=== PATIENT | female | born 1935 | race Caucasian/White ===

== ENCOUNTER 2016-12-24 05:10 | Emergency (ER) | payer OTHER, MEDICARE ==
--- NOTE | 2016-12-24 05:25 | EDPHY ---
H & P Time Seen by Provider: 12/24/16 05:20 HPI/ROS: Chief Complaint: Neck pain, headache, chest pressure HPI: 81-year-old woman was sitting in chair rest at 10 o'clock yesterday evening when she had a set of pain in the left lateral posterior part of her neck. She then developed as a headache. This lasted for several minutes then she does developed some chest pressure which radiated to her back into her scapula on the left side of her body was tingling. Chest pressure has improved. She is still having pain in the left side of her neck, 02/17. It is dull. No nausea or vomiting, no dizziness. No shortness of breath. Does not have a history of the same. Does have some history of anginal symptoms in the past for which she takes metoprolol. She has had a clean catheterization in the past year to here. No recent illness. No fevers or chills. ROS: 10 point Review of Systems is negative except as noted in the HPI. PMH: Exertional chest pain Medications: Gabapentin 100 mg twice a day Crestor 20 mg daily Aspirin 81 mg daily Calcium plus D 600 mg daily Vitamin D3 2000 International Units daily Vitamin-C 1000 mg daily Metoprolol 12.5 mg twice a day Allergies: Sulfa Social History: No smoking, occasional alcohol, no recreational drug use Family History: Father at 99 years of age, mother at 59 of cancer Physical Exam: Gen: Awake, Alert, No Distress HEENT: Nose: no rhinorrhea Eyes: PERRLA, EOMI Mouth: Moist mucosa Neck: Supple, no JVD, she has tenderness on posterior left lateral paraspinal musculature any assertion of the trapezius muscle reproducing presenting complaints. Chest: nontender, lungs clear to auscultation Heart: S1, S2 normal, no murmur Abd: Soft, non-tender, no guarding Back: no CVA tenderness, no midline tenderness Ext: no edema, non-tender Skin: no rash Neuro: CN II-XII intact, Sensation grossly intact, Strength 5/5 in bilateral upper and lower extremities Constitutional: Initial Vital Signs Temperature (C) 36.6 C 12/24/16 05:23 Heart Rate 60 12/24/16 05:23 Respiratory Rate 20 12/24/16 05:23 Blood Pressure 179/89 H 12/24/16 05:23 O2 Sat (%) 94 12/24/16 05:23 O2 Delivery Mode Room Air Allergies/Adverse Reactions: Sulfa (Sulfonamide Antibiotics) Allergy (Verified 08/14/11 16:26) Home Medications: Medication Instructions Recorded Aspirin 12/24/16 Calcium + D Soft Chewable Tab 12/24/16 Crestor 12/24/16 GABAPENTIN 12/24/16 Metoprolol Tartrate 12/24/16 Vitamin C 12/24/16 Vitamin D3 12/24/16 Medical Decision Making - Diagnostics EKG Interpretation: ECG time 5:24 a.m., sinus rhythm with a rate of 56, left axis deviation, normal intervals, no acute ST or T-wave changes. ED Course/Re-evaluation: ECG is negative. Chest x-ray is negative. Patient's troponin is normal. CT scan of the brain is normal. Symptoms are consistent with musculoskeletal pain. Given the duration of her symptoms out expect an elevation of troponin at this ACS. She is improved after nonsteroidals. She has appointment with Dr. Dubois while in 2 days. Will have her also follow up with Dr. Hamm, her primary care physician. She will return for any concerns. - Data Points Laboratory Results: Laboratory Results 12/24/16 05:15 12/24/16 12/24/16 05:15 05:15 WBC Pending RBC Pending Hgb Pending Hct Pending MCV Pending MCH Pending MCHC Pending RDW Pending Plt Count Pending MPV Pending Neut % (Auto) Pending Lymph % (Auto) Pending [place] % (Auto) Pending Eos % (Auto) Pending Baso % (Auto) Pending Nucleat RBC Rel Count Pending Absolute Neuts (auto) Pending Absolute Lymphs (auto) Pending Absolute Monos (auto) Pending Absolute Eos (auto) Pending Absolute Basos (auto) Pending Absolute Nucleated RBC Pending Immature Gran % Pending Immature Gran # Pending Sodium 142 mEq/L mEq/L (134-144) Potassium 4.4 mEq/L mEq/L (3.5-5.2) Chloride 107 mEq/L mEq/L (97-110) Carbon Dioxide 27 mEq/l mEq/l (22-31) Anion Gap 8 mEq/L mEq/L (8-16) BUN 17 mg/dL mg/dL (7-23) Creatinine 0.8 mg/dL mg/dL (0.6-1.0) Estimated GFR > 60 Glucose 96 mg/dL mg/dL (70-100) Calcium 9.3 mg/dL mg/dL (8.5-10.4) Troponin I < 0.012 ng/mL ng/mL (0-0.034) Departure - Departure Disposition: Home, Routine, Self-Care Clinical Impression: Neck pain, Chest pain Condition: Good Instructions: Neck Pain (ED), Chest Pain (ED) Additional Instructions: Return emergency depart for increasing headache, chest pain, shortness of breath , fevers, chills, numbness, tingling, weakness, or any other concerns. Follow up with primary care physician in 2-3 days for re-evaluation. You may take acetaminophen as needed for headache. Referrals: Patient,NotPresent [Unknown] - As per Instructions Lissa Hamm MD [Primary Care Provider] - As per Instructions
[2016-12-24 05:26] VITALS: TEMP 97.9
--- NOTE | 2016-12-24 05:26 | CPEKG ---
Heart Rate: 56 RR Interval: 1071 P-R Interval: 192 QRSD Interval: 94 QT Interval: 476 QTC Interval: 460 P [place]: 60 QRS [place]: -33 T Wave [place]: 21 EKG Severity - ABNORMAL ECG - EKG Impression: SINUS RHYTHM EKG Impression: LEFT AXIS DEVIATION EKG Impression: LEFT VENTRICULAR HYPERTROPHY Electronically Signed By: Timothy Rasheed 24-Dec-2016 05:28:21
[2016-12-24 05:51] LABS: ANION GAP 8 mEq/L (8-16); CALCIUM 9.3 mg/dL (8.5-10.4); CARBON DIOXIDE 27 mEq/l (22-31); CHLORIDE 107 mEq/L (97-110); CREATININE 0.8 mg/dL (0.6-1.0); GLOMERULAR FILTRATION RATE > 60; GLUCOSE 96 mg/dL (70-100); POTASSIUM 4.4 mEq/L (3.5-5.2); SODIUM 142 mEq/L (134-144)
[2016-12-24 06:02] LABS: TROPONIN I < 0.012 ng/mL (0-0.034)
[2016-12-24] MEDS ORDERED: KETOROLAC 15 MG/1 ML SDV ONE (06:07)
[2016-12-24] MEDS ORDERED: KETOROLAC 15 MG/1 ML SDV IVP ONE (06:12)
[2016-12-24 06:24] LABS: % IMMATURE GRANULYOCYTES 0.4 % (0.0-1.1); ABSOLUTE IMMATURE GRANULOCYTES 0.03 10^3/uL (0.00-0.10); ADD DIFF? NO; ADD MORPH? NO; ADD SCAN? NO; ATYPICAL LYMPHOCYTE FLAG 0 (0-99); FRAGMENT RBC FLAG 0 (0-99); HEMATOCRIT 42.2 % (38.0-47.0); HEMOGLOBIN 13.4 g/dL (12.6-16.3); LEFT SHIFT FLG 0 (0-99); LIPEMIA HEMOLYSIS FLAG 80 (0-99); MEAN CELL HEMOGLOBIN 31.3 pg (27.9-34.1); MEAN CELL HEMOGLOBIN CONCENTR. 31.8 g/dL (32.4-36.7); MEAN CELL VOLUME 98.6 fL (81.5-99.8); PLATELET CLUMPS FLAG 0 (0-99); PLATELET COUNT 205 10^3/uL (150-400); RED BLOOD CELL COUNT 4.28 10^6/uL (4.18-5.33); RED CELL DISTRIBUTION WIDTH 13.1 % (11.5-15.2)
[2016-12-24 06:35] VITALS: BP 133/71; PULSE 52; RESP 18; O2SAT 94
== END 2016-12-24 06:48 | disposition home or self-care (01) ==
LOC: EDUNIT#
DX: M54.2 Cervicalgia (principal); R07.9 Chest pain, unspecified; Z79.82 Long term (current) use of aspirin
CPT/HCPCS: 70450; 71020; 93005; 96374; 99285; J1885

== ENCOUNTER → 2017-01-03 | Outpatient (CLI) | payer OTHER, MEDICARE | LOC: BMCIMAGING 14:40 | PROVIDERS: ATTEND Internal Medicine | DX: Z12.31 Encounter for screening mammogram for malignant neoplasm of breast (principal) | CPT/HCPCS: G0202 ==

== ENCOUNTER → 2017-01-21 | Outpatient (CLI) | payer OTHER, MEDICARE | LOC: BMCIMAGING 10:19 | PROVIDERS: ATTEND Internal Medicine | DX: Z12.39 Encounter for other screening for malignant neoplasm of breast (principal); R92.8 Other abnormal and inconclusive findings on diagnostic imaging of breast | CPT/HCPCS: G0206 ==

== ENCOUNTER → 2017-06-03 | Outpatient (CLI) | payer OTHER, MEDICARE | LOC: BMCIMAGING 11:22 | PROVIDERS: ATTEND Internal Medicine | DX: Z13.820 Encounter for screening for osteoporosis (principal); M85.80 Other specified disorders of bone density and structure, unspecified site ==

== ENCOUNTER → 2018-01-06 | Outpatient (CLI) | payer OTHER, MEDICARE | LOC: BMCIMAGING 12:24 | PROVIDERS: ATTEND Internal Medicine | DX: Z12.31 Encounter for screening mammogram for malignant neoplasm of breast (principal) ==

== ENCOUNTER 2018-11-18 10:23 | Observation (INO) | payer OTHER, MEDICARE ==
[2018-11-18] MEDS ORDERED: NS 500 ML IV ONE (10:37)
[2018-11-18 10:59] LABS: PLATELET COUNT 260 10^3/uL (150-400)
--- NOTE | 2018-11-18 11:05 | EDPHY ---
H & P Time Seen by Provider: 11/18/18 10:35 HPI/ROS: Chief complaint. Headache, rapid heart rate, right facial numbness HPI. Patient is an 83-year-old female who drove herself to the emergency department with above complaints. Symptoms began 2 days ago. She complains of right facial numbness. She has a history of trigeminal neuralgia on the right but this feels different. She also felt that she had a rapid heart rate. Mild headache. Some urinary frequency last night. She feels somewhat spacey and slightly lightheaded. No visual change. No weakness to arms or legs and took the dog for a walk this morning without problem. No shortness of breath. Occasional slight pressure left anterior chest and she has a history of exertional angina. She has no chest discomfort now. She says that per chest pressure similar to previous. She has no fever. No abdominal pain or nausea vomiting or diarrhea. ROS 10 systems were reviewed and negative with the exception of the elements mentioned in the history of present illness Past Medical/Surgical History: Past medical history significant for exertional angina, trigeminal nerve pain on right-sided face Social History: , nonsmoker, no alcohol Smoking Status: Never smoked Physical Exam: General Appearance: Alert well-developed female mild distress vital signs are stable Eyes: Pupils equal and round no pallor or injection. ENT, Mouth: Mucous membranes are moist. Respiratory: There are no retractions, lungs are clear to auscultation. Cardiovascular: Regular rate and rhythm. Gastrointestinal: Abdomen is soft and nontender, no masses, bowel sounds normal. Neurological: Awake and alert, sensory and motor exams grossly normal. Speech is normal. Cranial nerves are normal. Patient notes normal sensation to both sides of her face to light touch. No pronator drift. Hnrudy-bs-[id number] and heel- to-irwin are intact bilaterally Skin: Warm and dry, no rashes. Musculoskeletal: Neck is supple nontender. Extremities symmetrical, full range of motion. Psychiatric: Patient is oriented X 3, there is no agitation. Constitutional: Initial Vital Signs Temperature (C) 36.6 C 11/18/18 10:24 Heart Rate 82 11/18/18 10:24 Respiratory Rate 16 11/18/18 10:24 Blood Pressure 183/80 H 11/18/18 10:24 O2 Sat (%) 93 11/18/18 10:24 O2 Delivery Mode Room Air Allergies/Adverse Reactions: Sulfa (Sulfonamide Antibiotics) Allergy (Verified 11/18/18 13:57) Rash Home Medications: Medication Instructions Recorded Ascorbic Acid [Vitamin C 500 mg 1,000 mg PO HS 12/24/16 (*)] Calcium Carb W/Vit D [Calcium Carb 500 mg PO DAILY 12/24/16 W/Vit D 500/200 (*)] Cholecalciferol Vit D3 [Vitamin D3 2,000 units PO DAILY 12/24/16 2000 units tab (OTC)] Gabapentin [Neurontin 100 MG (*)] 100 mg PO BID 12/24/16 Rosuvastatin Calcium [Crestor 20mg 20 mg PO HS 12/24/16 (*)] Glucosamine/Chondroitin 1 each PO BID 11/18/18 [Glucosamine/Chondroitin (*)] Meloxicam 15 mg PO DAILY 11/18/18 [place]-3 Fatty Acids [Fish Oil 1000 1,000 mg PO DAILY 11/18/18 mg (*)] Medical Decision Making - Diagnostics EKG Interpretation: EKG interpreted by me shows normal sinus rhythm normal interval. Left axis deviation. LVH by voltage. No significant ST elevation or depression. No arrhythmia. The rate is 76. No significant change from previous EKG November 2016 Imaging Results: Imaging Impressions Chest X-Ray 11/18/18 10:38 Impression: Nothing acute identified. Head CT 11/18/18 10:38 Impression: 1. Stable mild age-related atrophy. 2. No hemorrhage, mass effect, or definite acute peripheral infarct. 3. Stable mild nonspecific hypodensities in the white matter of bilateral frontal lobes. Differential diagnosis includes microvascular ischemic disease, post-infectious/post-inflammatory sequela, atypical demyelinating disease, or migraine-related sequela. Small white matter lacunar infarcts may also have this appearance. If symptoms worsen, additional imaging may be necessary. Findings discussed with Alfonso Thorpe M.D. at 11:40 hour, 11/18/2018. Chest x-ray interpreted by me is normal Head CT no evidence of intracranial bleeding Procedures: IV normal saline, monitor ED Course/Re-evaluation: I consulted discussed case with Dr. Santana, hospitalist, who agrees to the admission Patient and I discussed imaging EKG laboratory evaluation. Discussed treatment plan including recommendation for stroke workup. She expresses understanding and agreement Differential Diagnosis: Patient has altered sensation to the right face that is different than her trigeminal neuralgia. No evidence for intracranial hemorrhage. I am concerned about 2-day-old stroke and would like to admit for further stroke evaluation - Data Points Laboratory Results: Laboratory Results 11/18/18 10:45 11/18/18 10:45 11/18/18 11/18/18 11/18/18 10:51 10:45 10:45 WBC RBC Hgb Hct MCV MCH MCHC RDW Plt Count MPV Neut % (Auto) Lymph % (Auto) [place] % (Auto) Eos % (Auto) Baso % (Auto) Nucleat RBC Rel Count Absolute Neuts (auto) Absolute Lymphs (auto) Absolute Monos (auto) Absolute Eos (auto) Absolute Basos (auto) Absolute Nucleated RBC Immature Gran % Immature Gran # Sodium Potassium Chloride Carbon Dioxide Anion Gap BUN Creatinine Estimated GFR Glucose Hemoglobin A1c Pending Estim Average Glucose Pending Calcium POC Troponin I 0.00 ng/mL ng/mL (0.00-0.08) TSH Pending 11/18/18 11/18/18 10:45 10:45 WBC 8.24 10^3/uL 10^3/uL (3.80-9.50) RBC 5.45 10^6/uL H 10^6/uL (4.18-5.33) Hgb 16.9 g/dL H g/dL (12.6-16.3) Hct 52.0 % H % (38.0-47.0) MCV 95.4 fL fL (81.5-99.8) MCH 31.0 pg pg (27.9-34.1) MCHC 32.5 g/dL g/dL (32.4-36.7) RDW 13.9 % % (11.5-15.2) Plt Count 260 10^3/uL 10^3/uL (150-400) MPV 11.2 fL fL (8.7-11.7) Neut % (Auto) 54.6 % % (39.3-74.2) Lymph % (Auto) 33.7 % % (15.0-45.0) [place] % (Auto) 9.0 % % (4.5-13.0) Eos % (Auto) 1.5 % % (0.6-7.6) Baso % (Auto) 0.7 % % (0.3-1.7) Nucleat RBC Rel Count 0.0 % % (0.0-0.2) Absolute Neuts (auto) 4.50 10^3/uL 10^3/uL (1.70-6.50) Absolute Lymphs (auto) 2.78 10^3/uL 10^3/uL (1.00-3.00) Absolute Monos (auto) 0.74 10^3/uL 10^3/uL (0.30-0.80) Absolute Eos (auto) 0.12 10^3/uL 10^3/uL (0.03-0.40) Absolute Basos (auto) 0.06 10^3/uL 10^3/uL (0.02-0.10) Absolute Nucleated RBC 0.00 10^3/uL 10^3/uL (0-0.01) Immature Gran % 0.5 % % (0.0-1.1) Immature Gran # 0.04 10^3/uL 10^3/uL (0.00-0.10) Sodium 139 mEq/L mEq/L (135-145) Potassium 4.7 mEq/L mEq/L (3.5-5.2) Chloride 103 mEq/L mEq/L (97-110) Carbon Dioxide 26 mEq/l mEq/l (22-31) Anion Gap 10 mEq/L mEq/L (6-14) BUN 19 mg/dL mg/dL (7-23) Creatinine 0.8 mg/dL mg/dL (0.6-1.0) Estimated GFR > 60 Glucose 95 mg/dL mg/dL (70-100) Hemoglobin A1c Estim Average Glucose Calcium 10.2 mg/dL mg/dL (8.5-10.4) POC Troponin I TSH Medications Given: Discontinued Medications Sodium Chloride (Ns) 500 mls @ 0 mls/hr IV EDNOW ONE; Wide Open PRN Reason: Protocol Stop: 11/18/18 10:38 Last Admin: 11/18/18 10:45 Dose: 500 mls Point of Care Test Results: Chemistry 11/18/18 10:51 POC Troponin I 0.00 ng/mL ng/mL (0.00-0.08) Departure - Departure Disposition: [facility] Clinical Impression: Acute ischemic stroke Condition: Fair
--- NOTE | 2018-11-18 11:07 | CPEKG ---
Test Reason : OPEN Blood Pressure : / mmHG Vent. Rate : 076 BPM Atrial Rate : 077 BPM P-R Int : 160 ms QRS Dur : 104 ms QT Int : 412 ms P-R-T Axes : 067 -53 065 degrees QTc Int : 464 ms Sinus rhythm Probable left atrial enlargement Left anterior fascicular block Abnormal R-wave progression, early transition Left ventricular hypertrophy Anterior Q waves, possibly due to LVH ST elevation, consider inferior injury Confirmed by Mayur Thorpe ([id number]) on 11/18/2018 11:06:42 AM Referred By: MAYUR THORPE Confirmed By:Mayur Thorpe
[2018-11-18] MEDS ORDERED: ACETAMINOPHEN 325 MG TAB PO PRN (14:02)
[2018-11-18] MEDS ORDERED: ONDANSETRON 4 MG/2 ML VIAL IVP PRN (14:02)
[2018-11-18] MEDS ORDERED: ONDANSETRON DISINTEGRATING 4 MG TAB PO PRN (14:02)
--- NOTE | 2018-11-18 14:08 | PDGENHP ---
History and Physical - Chief Complaint Right-sided facial numbness, dizziness - History of Present Illness This is an 83 y/o female w/hx trigeminal neuralgia and exertional angina presenting to ED w/ 2 days worth of right-sided facial numbness and dizziness. She tells me these symptoms were present when she woke up 2 days ago and are constant. C/o mild occipital LUCAS and difficulty sleeping d/t perceived elevated heart rate. She has episodic trigeminal neuralgia, last one being a year ago and was stress-induced. She drove herself to the ED today w/concerns. She walked her dog today w/no issues or gait disturbances. Describes feeling "out of it," spacey and pre-syncope sensation but no actual syncopal event. Denies CP, palpitations, nausea, vomiting, SOB, urinary or bowel issues. EKG, head CT w/o contrast and CXR unremarkable. She is being admitted for further testing, treatment and monitoring. History Information - Allergies/Home Medication List Allergies/Adverse Reactions: Sulfa (Sulfonamide Antibiotics) Allergy (Verified 11/18/18 13:57) Rash Home Medications: Ascorbic Acid [Vitamin C 500 mg (*)] 1,000 mg PO HS 12/24/16 [Last Taken ] Calcium Carb W/Vit D [Calcium Carb W/Vit D 500/200 (*)] 500 mg PO DAILY [Last Taken 11/18/18] Cholecalciferol Vit D3 [Vitamin D3 2000 units tab (OTC)] 2,000 units PO DAILY [Last Taken 11/18/18] Gabapentin [Neurontin 100 MG (*)] 100 mg PO BID 12/24/16 [Last Taken 11/18/18] Rosuvastatin Calcium [Crestor 20mg (*)] 20 mg PO HS 12/24/16 [Last Taken ] Glucosamine/Chondroitin [Glucosamine/Chondroitin (*)] 1 each PO BID 11/18/18 [ Last Taken 11/18/18] Meloxicam 15 mg PO DAILY 11/18/18 [Last Taken 11/16/18] [place]-3 Fatty Acids [Fish Oil 1000 mg (*)] 1,000 mg PO DAILY 11/18/18 [Last Taken 11/18/18] I have personally reviewed and updated: family history, medical history, social history, surgical history Past Medical History: Trigeminal neuralgia. Exertional angina (diagnosed 15 yrs ago; used to take metoprolol but stopped awhile ago because she no longer needs it. 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 is in an assisted-living, memory care unit d/t Alzheimer's. Son and [id number] w/ grandkids lives nearby.She lives in [place]. Review of Systems Review of Systems: ROS: 10pt was reviewed & negative except for what was stated in HPI & below Physical Exam Physical Exam: Lab data and imaging were reviewed. EKG: SR, left axis deviation, LVH CXR: Nothing acute Head CT w/o contrast: stable mild age-related atrophy, no hemorrhage, mass effect or definite acute peripheral intact. Stable mild nonspecific hypodensities in the white matter of the bilateral frontal lobes. Troponin: 0.00 BUN/Cr: 19/0.8 Temp Pulse Resp BP Pulse Ox 36.9 C 76 14 144/91 H 95 11/18/18 13:58 11/18/18 13:58 11/18/18 13:58 11/18/18 13:58 11/18/18 13:58 O2 (L/minute) 1 Constitutional: no apparent distress, appears nourished, not in pain Eyes: PERRL, anicteric sclera, EOMI Ears, Nose, Mouth, Throat: moist mucous membranes, hearing normal, ears appear normal, no oral mucosal ulcers Cardiovascular: regular rate and rhythym, no murmur, rub, or gallop, No edema Peripheral Pulses: 2+: dorsalis-pedis (R), dorsalis-pedis (L) Respiratory: no respiratory distress, no rales or rhonchi, clear to auscultation Gastrointestinal: normoactive bowel sounds, soft, non-tender abdomen, no palpable masses Genitourinary: no bladder fullness, no bladder tenderness Skin: warm, normal color, no rashes or abrasions, no fluctuance, no induration, No mottled Musculoskeletal: full muscle strength, no muscle tenderness, normal joint ROM, no joint effusions, other (Ambulated w/o gait disturbances) Neurologic: AAOx3, sensation intact bilaterally, numbness (Reports sensation to right side of face however sensation seems decreased. ), CN II-XII Intact ( Heel to irwin test was properly performed; able to perform [id number] test w/ no issues; was able to recall 3 words 5 minutes later) Psychiatric: interacting appropriately, not anxious, not encephalopathic, thought process linear Lymph, Heme, Immunologic: no cervical LAD, no supraclavicular LAD Lab Data & Imaging Review 11/18/18 10:45 11/18/18 10:45 WBC 8.24 10^3/uL (3.80-9.50) 11/18/18 10:45 RBC 5.45 10^6/uL (4.18-5.33) H 11/18/18 10:45 Hgb 16.9 g/dL (12.6-16.3) H 11/18/18 10:45 Hct 52.0 % (38.0-47.0) H 11/18/18 10:45 MCV 95.4 fL (81.5-99.8) 11/18/18 10:45 MCH 31.0 pg (27.9-34.1) 11/18/18 10:45 MCHC 32.5 g/dL (32.4-36.7) 11/18/18 10:45 RDW 13.9 % (11.5-15.2) 11/18/18 10:45 Plt Count 260 10^3/uL (150-400) 11/18/18 10:45 MPV 11.2 fL (8.7-11.7) 11/18/18 10:45 Neut % (Auto) 54.6 % (39.3-74.2) 11/18/18 10:45 Lymph % (Auto) 33.7 % (15.0-45.0) 11/18/18 10:45 [place] % (Auto) 9.0 % (4.5-13.0) 11/18/18 10:45 Eos % (Auto) 1.5 % (0.6-7.6) 11/18/18 10:45 Baso % (Auto) 0.7 % (0.3-1.7) 11/18/18 10:45 Nucleat RBC Rel Count 0.0 % (0.0-0.2) 11/18/18 10:45 Absolute Neuts (auto) 4.50 10^3/uL (1.70-6.50) 11/18/18 10:45 Absolute Lymphs (auto) 2.78 10^3/uL (1.00-3.00) 11/18/18 10:45 Absolute Monos (auto) 0.74 10^3/uL (0.30-0.80) 11/18/18 10:45 Absolute Eos (auto) 0.12 10^3/uL (0.03-0.40) 11/18/18 10:45 Absolute Basos (auto) 0.06 10^3/uL (0.02-0.10) 11/18/18 10:45 Absolute Nucleated RBC 0.00 10^3/uL (0-0.01) 11/18/18 10:45 Immature Gran % 0.5 % (0.0-1.1) 11/18/18 10:45 Immature Gran # 0.04 10^3/uL (0.00-0.10) 11/18/18 10:45 Sodium 139 mEq/L (135-145) 11/18/18 10:45 Potassium 4.7 mEq/L (3.5-5.2) 11/18/18 10:45 Chloride 103 mEq/L (97-110) 11/18/18 10:45 Carbon Dioxide 26 mEq/l (22-31) 11/18/18 10:45 Anion Gap 10 mEq/L (6-14) 11/18/18 10:45 BUN 19 mg/dL (7-23) 11/18/18 10:45 Creatinine 0.8 mg/dL (0.6-1.0) 11/18/18 10:45 Estimated GFR > 60 11/18/18 10:45 Glucose 95 mg/dL (70-100) 11/18/18 10:45 Calcium 10.2 mg/dL (8.5-10.4) 11/18/18 10:45 POC Troponin I 0.00 ng/mL (0.00-0.08) 11/18/18 10:51 Assessment & Plan Plan: 83 y/o female w/hx of trigeminal neuralgia presents w/ 2 days of dizziness and right-sided facial numbness associated w/mild headache and subjective elevated heart rate. Reports sensation is not like her previous attack of trigeminal neuralgia which occurred a year ago. Her vital signs are the following: BP 156/ 75, HR 65, Resp 16, 36.6c, 90% RA. She drove herself to the ED and she reports contemplating that task considering her symptoms however she had no difficulties , no vision changes. She also has a hx of exertional angina that has been diagnosed 15+ years ago and used to take metoprolol; she stopped this awhile ago. She has vague but concerning symptoms and for that reason, we will work her up to r/o TIA/CVA is taking place. I also considered possible environmental allergies as a component to her symptoms but she denies suffering from this. #Suspected TIA/CVA -Neurology consulted for AM -Echo complete w/bubbler/Brain MRI w/o contrast/Head and Neck CTA w/contrast pending; IVF x 1 bag to help perfuse kidneys -First trop negative. Cycle one more trop tonight -Cont tele monitoring -TSH/A1c pending -Lipid panel in AM; cont rosuvastatin tonight -PT/OT/SENIOR CLINICAL DATA COORDINATOR to evaluate and treat -One-time swallow eval by RN -Reports taking ASA today; will initiate ASA 81 mg in AM #Headache: Mild dull occipital headache -Treat PO PRN -IVF x 1 bag #Hx of trigeminal neuralgia: Reports this episode is not similar to her last episode which was a year ago and was stressed-induced because of her and onset of Alzheimer's that has now placed him in an assisted-living, memory care unit. -Cont gabapentin #Exertional chest pain: No c/o. Diet: Regular once passes RN swallow test VTE ppx: Lovenox subq Code: Full Dispo: Admit to obs
[2018-11-18] MEDS ORDERED: NS 1,000 ML IV SCH (14:45)
[2018-11-18] MEDS ORDERED: IOPAMIDOL (ISOVUE 370) 100 ML BTL IV ONE (15:02)
[2018-11-18] MEDS ORDERED: GADOBUTROL 10 ML VIAL IVP ONE (15:05)
[2018-11-18] MEDS ORDERED: LORazepam 0.5 MG TAB PO ONE (15:15)
--- NOTE | 2018-11-18 15:50 | ECHO ---
[email or web address] [address] [address] Main: [phone] Echocardiography Examination Transthoracic Name: MYA PALMER MR#: [id number] Study Date: 11/18/2018 Study Time: 02:34 PM Date of : 1935 Age: 83 year(s) Height: 165.1 cm (65 in.) Weight: 71.21 kg (157 lb.) BSA: 1.78 m2 Gender: Female Examination: Echo Contrast: Image Quality: Rhythm: Heart Rate: BP: / Indication: Transient ischemic attack Procedure Staff Referring Physician: Chain Builder Loom Control: [place] RDCS Reading Physician: Braden Baca MD Requesting Provider: Ordering Physician: Rosangela Katz Indication: Transient ischemic attack Measurements Chambers AV/MV Label Value Normal Value Label Value Normal Value LVOT Vmax 0.99 m/s (0.7m/s - 1.1m/s) AV PGmax 8 mmHg LVOTd 1.9 cm (1.8cm - 2cm) AV PGmean 5 mmHg LVOT VTI 20.1 cm (18cm - 22cm) AV Vmax 1.43 m/s LVDd, 2D 3.6 cm (3.9cm - 5.3cm) BOYD (Vmax) 2 cm2 LVDs, 2D 2.5 cm (2.1cm - 4cm) BOYD (VTI) 2 cm2 IVSd, 2D 0.7 cm (0.6cm - 1.1cm) MV E Vmax 0.58 m/s LVPWd, 2D 0.9 cm MV A Vmax 1.18 m/s LVEF, 2D 62 % (54% - 74%) MV E/A 0.49 LVOT PGmean 2 mmHg MV E/E' lateral 9.1 LVOT Vmean 0.66 m/s MV E/E' septal 13 (0.45 - 1.25) RVDd, 2D 2.1 cm (1.9cm - 3.8cm) MV E' septal 0.04 m/s LADs, 2D 3.3 cm (2.7cm - 3.8cm) MV E' lateral 0.06 m/s Additional Vessels MV E/E' mean 11.6 Label Value Normal Value MV E' mean 0.05 m/s AoAsc 2.7 cm TV/PV AoRoot, MM 2.9 cm (2.2cm - 3.7cm) Label Value Normal Value PV PGmax 2 mmHg PV Vmax, Caliper 0.73 m/s (0.6m/s - 0.9m/s) Patient: MYA PALMER Study Date: 11/18/2018 Page 1 of 2 02:34 PM Conclusions Left Ventricle: EF range is estimated at 60 % - 65 %. IAS: An agitated saline study was performed and was negative for intracardiac shunting. Aortic Valve: Trivial aortic regurgitation is present. Findings Left Ventricle: Left ventricle is normal in size. Normal global systolic left ventricular function. EF range is estimated at 60 % - 65 %. Left ventricle wall thickness is normal. There are no regional wall motion abnormalities. Left ventricular diastolic function parameters are normal. Right Ventricle: Normal size right ventricle. Right ventricular wall thickness is normal. Right ventricular systolic function is normal. Left Atrium: The left atrium is normal in size. IAS: An agitated saline study was performed and was negative for intracardiac shunting. Right Atrium: The right atrium is normal in size. Mitral Valve: Mitral valve appears structurally normal. No significant mitral regurgitation. No mitral valve stenosis. There is no mitral calcification. Aortic Valve: Trivial aortic regurgitation is present. There is no aortic stenosis. Aortic leaflets exhibit mild calcification. The aortic valve is trileaflet. Tricuspid Valve: Tricuspid valve leaflets are normal in appearance and function. No tricuspid regurgitation. Pulmonic Valve: Pulmonic leaflets are normal in appearance and function. No pulmonic valve regurgitation is evident. Aorta: The aorta is normal. The aortic root size in M-mode measures 2.9 cm. The ascending aorta measures 2.7 cm. Aorta Measurements AoRoot, MM is 2.9 cm. IVC: The inferior vena cava is normal in size. Pericardium: No pericardial effusion. Exam Details Procedure Ordered: Echo (No Signature Object) Patient: MYA PALMER Study Date: 11/18/2018 Page 2 of 2 02:34 PM [id number]
--- NOTE | 2018-11-18 16:57 | HOSPPROG ---
Hospitalist Progress Note Assessment/Plan: patient seen examined/discussed w DIRECTOR PRESALES Sterling 83 yo F w R facial numbness that crosses midfline possibly c/w TIA, initial workup neg for cva symptoms vague check orthostatics telemetry overnight outpt follow up Objective: Vital Signs Temp Pulse Resp BP Pulse Ox 36.9 C 76 14 144/91 H 95 11/18/18 13:58 11/18/18 13:58 11/18/18 13:58 11/18/18 13:58 11/18/18 15:51 ICD10 Worksheet Patient Problems: Problems Problem Status Onset Acute ischemic stroke Acute
--- NOTE | 2018-11-18 20:20 | PDHOSCONS ---
History and Physical - History of Present Illness Approximately 1900: Initial imaging and testing for the patient including brain MRI, neck MRA, echocardiogram, head CTA, and troponin has come back unremarkable4 and negative. I received word from her daytime nurse that she would like to be discharged due to this. The patient's symptoms are still present, it has not worsened nor has it improved. I explained to the patient her risks versus benefits to leaving the hospital with outstanding testing and her current condition. I explained to the patient should she want to leave today, she would need to follow up outpatient with a lipid panel testing as well as initiating baby aspirin 81 mg on a daily basis until she is able to have an appointment with her primary care doctor which I also recommended she schedule sooner rather than later. After discussing this with her for approximately 20 min, she has chosen to stay to complete the testing. Her main concern at this point is to leave before noon tomorrow if possible so she is able to drive and see her who is in assisted living, memory care unit due to his Alzheimer's. I made with no promises to her as far as timing of discharge should she be discharged tomorrow, I once again reiterated to her the further testing we would like to do before safely discharging her home. She had no further questions or concerns. History Information - Allergies/Home Medication List Allergies/Adverse Reactions: Sulfa (Sulfonamide Antibiotics) Allergy (Verified 11/18/18 13:57) Rash Home Medications: Ascorbic Acid [Vitamin C 500 mg (*)] 1,000 mg PO HS 12/24/16 [Last Taken ] Calcium Carb W/Vit D [Calcium Carb W/Vit D 500/200 (*)] 500 mg PO DAILY [Last Taken 11/18/18] Cholecalciferol Vit D3 [Vitamin D3 2000 units tab (OTC)] 2,000 units PO DAILY [Last Taken 11/18/18] Gabapentin [Neurontin 100 MG (*)] 100 mg PO BID 12/24/16 [Last Taken 11/18/18] Rosuvastatin Calcium [Crestor 20mg (*)] 20 mg PO HS 12/24/16 [Last Taken ] Glucosamine/Chondroitin [Glucosamine/Chondroitin (*)] 1 each PO BID 11/18/18 [ Last Taken 11/18/18] Meloxicam 15 mg PO DAILY 11/18/18 [Last Taken 11/16/18] [place]-3 Fatty Acids [Fish Oil 1000 mg (*)] 1,000 mg PO DAILY 11/18/18 [Last Taken 11/18/18] I have personally reviewed and updated: family history, medical history, social history, surgical history Past Medical History: Trigeminal neuralgia. Exertional angina (diagnosed 15 yrs ago; used to take metoprolol but stopped awhile ago because she no longer needs it. 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 is in an assisted-living, memory care unit d/t Alzheimer's. Son and [id number] w/ grandkids lives nearby.She lives in [place]. Review of Systems Review of Systems: Physical Exam Physical Exam: Temp Pulse Resp BP Pulse Ox 36.8 C 84 18 121/68 H 90 L 11/18/18 19:43 11/18/18 19:43 11/18/18 19:43 11/18/18 19:43 11/18/18 19:43 O2 (L/minute) 1 Lab Data & Imaging Review 11/18/18 10:45 11/18/18 10:45 WBC 8.24 10^3/uL (3.80-9.50) 11/18/18 10:45 RBC 5.45 10^6/uL (4.18-5.33) H 11/18/18 10:45 Hgb 16.9 g/dL (12.6-16.3) H 11/18/18 10:45 Hct 52.0 % (38.0-47.0) H 11/18/18 10:45 MCV 95.4 fL (81.5-99.8) 11/18/18 10:45 MCH 31.0 pg (27.9-34.1) 11/18/18 10:45 MCHC 32.5 g/dL (32.4-36.7) 11/18/18 10:45 RDW 13.9 % (11.5-15.2) 11/18/18 10:45 Plt Count 260 10^3/uL (150-400) 11/18/18 10:45 MPV 11.2 fL (8.7-11.7) 11/18/18 10:45 Neut % (Auto) 54.6 % (39.3-74.2) 11/18/18 10:45 Lymph % (Auto) 33.7 % (15.0-45.0) 11/18/18 10:45 [place] % (Auto) 9.0 % (4.5-13.0) 11/18/18 10:45 Eos % (Auto) 1.5 % (0.6-7.6) 11/18/18 10:45 Baso % (Auto) 0.7 % (0.3-1.7) 11/18/18 10:45 Nucleat RBC Rel Count 0.0 % (0.0-0.2) 11/18/18 10:45 Absolute Neuts (auto) 4.50 10^3/uL (1.70-6.50) 11/18/18 10:45 Absolute Lymphs (auto) 2.78 10^3/uL (1.00-3.00) 11/18/18 10:45 Absolute Monos (auto) 0.74 10^3/uL (0.30-0.80) 11/18/18 10:45 Absolute Eos (auto) 0.12 10^3/uL (0.03-0.40) 11/18/18 10:45 Absolute Basos (auto) 0.06 10^3/uL (0.02-0.10) 11/18/18 10:45 Absolute Nucleated RBC 0.00 10^3/uL (0-0.01) 11/18/18 10:45 Immature Gran % 0.5 % (0.0-1.1) 11/18/18 10:45 Immature Gran # 0.04 10^3/uL (0.00-0.10) 11/18/18 10:45 Sodium 139 mEq/L (135-145) 11/18/18 10:45 Potassium 4.7 mEq/L (3.5-5.2) 11/18/18 10:45 Chloride 103 mEq/L (97-110) 11/18/18 10:45 Carbon Dioxide 26 mEq/l (22-31) 11/18/18 10:45 Anion Gap 10 mEq/L (6-14) 11/18/18 10:45 BUN 19 mg/dL (7-23) 11/18/18 10:45 Creatinine 0.8 mg/dL (0.6-1.0) 11/18/18 10:45 Estimated GFR > 60 11/18/18 10:45 Glucose 95 mg/dL (70-100) 11/18/18 10:45 Hemoglobin A1c 6.0 % (4.0-6.0) 11/18/18 10:45 Estim Average Glucose 126 mg/dL (68-126) 11/18/18 10:45 Calcium 10.2 mg/dL (8.5-10.4) 11/18/18 10:45 POC Troponin I 0.00 ng/mL (0.00-0.08) 11/18/18 10:51 Troponin I < 0.012 ng/mL (0.000-0.034) 11/18/18 17:00 TSH 2.520 uIU/mL (0.465-4.680) 11/18/18 10:45 Assessment & Plan Assessment: Acute ischemic stroke (Acute)
[2018-11-18] MEDS ORDERED: ASCORBIC ACID 500 MG TAB PO SCH (21:00)
[2018-11-18] MEDS ORDERED: ROSUVASTATIN CALCIUM 20 MG TAB PO SCH (21:00)
[2018-11-18] MEDS: GABAPENTIN 100 MG CAP PO SCH (21:26)
[2018-11-19 05:50] LABS: PLATELET COUNT 203 10^3/uL (150-400)
[2018-11-19 07:31] VITALS: BP 127/68
[2018-11-19] MEDS: GABAPENTIN 100 MG CAP PO SCH (08:30)
--- NOTE | 2018-11-19 08:59 | HOSPPROG ---
Hospitalist Progress Note Assessment/Plan: 83 yo F w facial numbness not a neurovascular event stroke workup neg home today Subjective: no AF on tele. d/w dr pearson Objective: Vital Signs Temp Pulse Resp BP Pulse Ox 36.8 C 62 13 127/68 H 99 11/19/18 07:30 11/19/18 07:30 11/19/18 07:30 11/19/18 07:30 11/19/18 07:30 Laboratory Results 11/19/18 05:08 11/19/18 05:08 11/18/18 11/19/18 11/20/18 05:59 05:59 05:59 Intake Total 620 Balance 620 - Physical Exam Constitutional: no apparent distress, appears nourished Eyes: PERRL, anicteric sclera Ears, Nose, Mouth, Throat: moist mucous membranes, hearing normal Cardiovascular: regular rate and rhythym, no murmur, rub, or gallop Respiratory: no respiratory distress, no rales or rhonchi Gastrointestinal: normoactive bowel sounds, soft, non-tender abdomen Genitourinary: no bladder fullness, No carranza in urethra Skin: warm, normal color Musculoskeletal: no joint effusions Neurologic: CN II-XII Intact Psychiatric: interacting appropriately ICD10 Worksheet Patient Problems: Problems Problem Status Onset Acute ischemic stroke Acute
[2018-11-19] MEDS ORDERED: ENOXAPARIN 40 MG/0.4 ML SYR SC SCH (09:00)
[2018-11-19] MEDS ORDERED: CHOLECALCIFEROL VIT D3 2,000 UNITS TAB/CAP PO SCH (09:00)
[2018-11-19] MEDS ORDERED: CALCIUM CARB W/VIT D 500 MG TAB PO SCH (09:00)
[2018-11-19] MEDS ORDERED: ASPIRIN EC 81 MG TAB PO SCH (09:00)
--- NOTE | 2018-11-19 09:17 | GDS ---
[f rep st] DISCHARGE SUMMARY DISCHARGE DIAGNOSES: 1. Right-sided facial numbness, felt not consistent with neurovascular event. 2. Hyperlipidemia. HOSPITAL COURSE: Please see admission history and physical by Анна Katz. Patient presented with fac ial numbness that had been going on for a number of days and did cross the midline. Workup revealed an EKG in sinus rhythm, a noncontrast head CT without stroke. Brain MRI showed no stroke. Neck MRA showed no vascular occlusions. Head CT-A showed an intact [place] of [place]. Echocardiogram was unre markable. LDL is at 82 on statin therapy. Telemetry revealed no atrial fibrillation. 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 She is discharged home with the addition of a baby aspirin given her risk factor profile. /[id number]/MODL
--- NOTE | 2018-11-19 09:22 | GCON ---
[f rep st] CONSULTATION NEUROLOGIC CONSULTATION REFERRING PHYSICIAN: Asad Santana MD HISTORY: The patient is an 83-year-old woman who I am asked to see in neurologic consultation regard ing symptoms that occurred over the last few days. I had seen her in the distant past for right trig eminal neuralgia, treated with gabapentin, and that has not been very problematic for the most part, she says. She woke up 2 days prior to coming to the hospital with some occipital headache, difficult y sleeping. When she walked her dog she was doing well, but said she was feeling "out of it and spac ey." She has noted some mild paresthesias in the right face. She was feeling a little bit unsteady. She is not on daily aspirin. History of shoulder surgery. FAMILY HISTORY: Noncontributory. SOCIAL HISTORY: No smoking. Only rare alcohol. She is , and her is in assisted [facility] with Alzheimer disease. REVIEW OF SYSTEMS: A 10-point unremarkable except for that noted above. PHYSICAL EXAMINATION: VITAL SIGNS: Blood pressure is 127/68, pulse of 62, respiration 13, temperatu re 36.8. GENERAL: Well developed, no acute distress. EYES: Clear. NECK: Supple with no bruits o r masses. CARDIAC: Regular rate and rhythm. No murmur. She is alert and attentive, with clear flu ent speech and fully oriented. Pupils are 3 mm and reactive. Extraocular movements intact. Normal facial sensation and strength. Palate elevates symmetrically. Tongue protrudes midline. MOTOR: No rmal muscle bulk and tone, 5/5 strength with no abnormal movements. Sensation is preserved for tempe rature and light touch. No ataxia on [id number]. Normal gait. Reflexes 1+ and symmetric. LABORATORY STUDIES: Unremarkable CBC. She has an LDL cholesterol of 83. She is already on statin t herapy. Other labs are unremarkable. The head CT and MRI showed nonspecific white matter changes, b ut no evidence of an acute infarct or hemorrhage. MR angiogram of the neck shows no hemodynamically significant stenosis, and CT angiogram of the head does not show any aneurysm or other significant va scular anomalies, but some normal anatomic variants. IMPRESSION: Total unit time of 55 minutes. The patient has experienced some symptoms evolving over the last few days with history of paresthesias in the right face before, and now some mild symptoms, and then this nonspecific feeling of being "out of it." I do not think she has had stroke, and is no t suggested by the imaging studies. 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 We cannot definitively rule out TIA, but the overall pattern is less suggestive of that. False-negative MRI is possible, but rare. The recom mendation is that she be discharged, and can follow up with her primary care, and then see me on an a s-needed basis. We discussed this. Daily aspirin in addition to continuing her statin therapy would be appropriate. Her NIH Stroke Scale is 0. /[id number]/MODL
--- NOTE | 2018-11-19 11:07 | ASMTCMCOM ---
CM Note CM Note Notes: Pt chart reviewed for discharge. Pt is an 83 yr old admitted with Facial numbness and r/o CVA. After MRI and Head CT Pt is negative for strokes. Pt will see a neurologist once discharged. CM available for needs. Plan: Home independently with son Date Signed: 11/19/2018 11:05 AM Electronically Signed By:Lisa Ybarra
--- NOTE | 2018-11-19 19:37 | CPEKG ---
Test Reason : OPEN Blood Pressure : / mmHG Vent. Rate : 066 BPM Atrial Rate : 066 BPM P-R Int : 172 ms QRS Dur : 101 ms QT Int : 437 ms P-R-T Axes : 039 -48 026 degrees QTc Int : 458 ms Sinus rhythm Left anterior fascicular block Left ventricular hypertrophy Confirmed by Dom Berman ([id number]) on 11/19/2018 7:37:06 PM Referred By: Asad Santana Confirmed By:Dom Berman
== END 2018-11-19 11:02 | disposition home or self-care (01) ==
LOC: INTOOBSV 12:51 → F3N 13:50
PROVIDERS: ADMIT Internal Medicine; ATTEND Internal Medicine
DX: R20.2 Paresthesia of skin (principal); R42 Dizziness and giddiness; R07.89 Other chest pain; R29.700 NIHSS score 0; E78.5 Hyperlipidemia, unspecified; G50.0 Trigeminal neuralgia; Z88.2 Allergy status to sulfonamides
CPT/HCPCS: 70450; 70496; 70548; 70551; 71045; 92523; 93005; 93306; 96360; 97161; 99285; A9585; G0378; J1650; Q9967; 84484-ER

== ENCOUNTER → 2019-01-11 | Outpatient (CLI) | payer OTHER, MEDICARE | LOC: BMCIMAGING 14:58 ==